=== PATIENT | female | born 1980 | race African-American/Black ===

== ENCOUNTER 2017-03-01 16:22 | Inpatient (IN) | payer OTHER ==
[2017-03-01] VITALS (8 sets, daily range): BP systolic 100–130; BP diastolic 61–78
[~2017-03-01] VITALS: Ht 162.6 cm; Wt 69.8 kg
[~2017-03-01 16:22] MED LIST: AMBIEN5 MG; FLEXERIL5 MG; LEXAPRO5 MG; NOHOMEMEDS
[2017-03-01] MEDS ORDERED: PRENATAL TABLE1 EAC3 PO (17:37)
[2017-03-01 17:47] LABS: BASOPHIL (%) 0.3 % (0-1); EOSINOPHIL (%) 2.1 % (0-5); EOSINOPHIL COUNT 0.1 K/uL (0-0.3); HEMATOCRIT 25.4 % (36.0-46.0); HEMOGLOBIN 7.8 G/DL (11.9-15.5); IMMATURE GRANULOCYTE (%) 0.6 % (0.0-0.7); LYMPHOCYTE (%) 19.2 % (15-42); LYMPHOCYTE COUNT 0.7 K/uL (1.0-2.8); MCHC 30.7 G/DL (30.0-36.0); MCV 71.5 FL (83-99); MONOCYTE (%) 14.2 % (3-12); MONOCYTE COUNT 0.5 K/uL (0-0.8); NEUTROPHIL (%) 63.6 % (45-76); NEUTROPHIL COUNT 2.2 K/uL (1.8-6.4); PLATELET COUNT 269 K/uL (156-360); RBC DIS.WIDTH-CV 15.5 % (11.8-14.6); RBC DIS.WIDTH-SD 40.1 % (39-53); RED BLOOD COUNT 3.55 M/uL (3.80-5.20); WHITE BLOOD COUNT 3.4 K/uL (4.1-10.2)
[2017-03-02] VITALS (31 sets, daily range): BP systolic 107–145; BP diastolic 58–86
[2017-03-02] MEDS ORDERED: IBUPROFEN800 MG PO (14:04)
[2017-03-02] MEDS ORDERED: FERROUS SULFAT325 MG PO (14:04)
[2017-03-03 07:06] LABS: BASOPHIL (%) 0.4 % (0-1); EOSINOPHIL (%) 1.9 % (0-5); EOSINOPHIL COUNT 0.1 K/uL (0-0.3); HEMATOCRIT 24.9 % (36.0-46.0); HEMOGLOBIN 7.7 G/DL (11.9-15.5); IMMATURE GRANULOCYTE (%) 0.8 % (0.0-0.7); LYMPHOCYTE COUNT 0.8 K/uL (1.0-2.8); MCH 22.1 PG (29.0-34.0); MCHC 30.9 G/DL (30.0-36.0); MCV 71.6 FL (83-99); MONOCYTE (%) 12.3 % (3-12); MONOCYTE COUNT 0.7 K/uL (0-0.8); NEUTROPHIL (%) 69.6 % (45-76); NEUTROPHIL COUNT 3.7 K/uL (1.8-6.4); PLATELET COUNT 245 K/uL (156-360); RBC DIS.WIDTH-CV 15.6 % (11.8-14.6); RED BLOOD COUNT 3.48 M/uL (3.80-5.20); WHITE BLOOD COUNT 5.3 K/uL (4.1-10.2)
[2017-03-03 07:28] VITALS: BP 108/78
[2017-03-03 16:05] VITALS: BP 115/77
[2017-03-04 07:37] VITALS: BP 95/62
== END 2017-03-04 12:15 | disposition home or self-care (01) | DRG 774 ==
LOC: LDRP-OP 16:22 → 2WEST 16:26 → LDRP-OP 04-06 13:00
PROVIDERS: Midwife; Nurse Practitioner
PROC: 10907ZC Drainage of Amniotic Fluid, Therapeutic from Products of Conception, Via Natural or Artificial Opening (ICD-10-PCS; principal; 2017-03-02)
PROC: 10E0XZZ Delivery of Products of Conception, External Approach (ICD-10-PCS; principal; 2017-03-02)
PROC: 3E0R3BZ Introduction of Anesthetic Agent into Spinal Canal, Percutaneous Approach (ICD-10-PCS; principal; 2017-03-02)
PROC: 00HU33Z Insertion of Infusion Device into Spinal Canal, Percutaneous Approach (ICD-10-PCS; principal; 2017-03-02)
PROC: 3E0P7VZ Introduction of Hormone into Female Reproductive, Via Natural or Artificial Opening (ICD-10-PCS; principal; 2017-03-02)
DX: O99.02 Anemia complicating childbirth (principal); O75.3 Other infection during labor; D50.9 Iron deficiency anemia, unspecified; O99.62 Diseases of the digestive system complicating childbirth; K21.9 Gastro-esophageal reflux disease without esophagitis; O69.81X0 Labor and delivery complicated by cord around neck, without compression, not applicable or unspecified; Z37.0 Single live birth; Z3A.39 39 weeks gestation of pregnancy
CPT/HCPCS: 85025; C1755; G0378; J1050; J2270; J2590; J3010; J7120